=== PATIENT | female | born 1970 | race Two or more races ===

== ENCOUNTER 2017-08-09 14:37 | Emergency (ER) | payer OTHER ==
[~2017-08-09] VITALS: Ht 157.5 cm; Wt 61.2 kg
[~2017-08-09 14:37] MED LIST: IBUPROFEN600 MG ORAL; NKM; NORCO 5-325 TA1 EACH ORAL
--- NOTE | 2017-08-09 15:04 | Emergency Room Report ---
History of Present Illness General Chief Complaint: Pain Source: Patient Present Illness HPI Patient presents emergency department today complaining of right shoulder pain wrist pain and left knee pain. Patient states that she had [place] [employer] yesterday when she slipped on some water. She initially didn't feel so much pain when home. She states the pain became worse today. She's having pain limits her range of motion her right shoulder. She cannot abduct it has been 90. She denies any headache neck pain or chest pain. She complains of some mild lower back discomfort but is able to ambulate without difficulty. Denies any dysuria or frequency. She is able to move her wrist as well as her ankle. And her knee. She denies any snuffbox tenderness. Symptoms are noted to be mild/moderate.No other modifying factors. No other associated signs and symptoms. No other complaints were noted. Allergies: Coded Allergies: No Known Allergies (Verified Allergy, Unknown, 10/15/06) Patient History Past Medical History: none Past Surgical History: none Pertinent Family History: none Social History: Denies: smoking, alcohol use, drug use Last Menstrual Period: 08/02/17 Reviewed Nursing Documentation: PMH: Agreed, PSxH: Agreed Nursing Documentation-PMH Past Medical History: No Stated History Review of Systems All Other Systems: negative except mentioned in HPI Physical Exam Vital Signs Date Time Temp Pulse Resp B/P (MAP) Pulse Ox O2 Delivery O2 Flow Rate FiO2 08/09/17 14:40 98.4 76 18 127/83 98 Room Air Sp02 EP Interpretation: reviewed, normal General Appearance: normal inspection, well appearing, no apparent distress, alert Head: atraumatic Eyes: bilateral eye normal inspection ENT: normal ENT inspection, hearing grossly normal, normal voice Neck: normal inspection, full range of motion, supple, no bony tend Respiratory: normal inspection, lungs clear, normal breath sounds, no respiratory distress, no retraction, no wheezing Cardiovascular #1: regular rate, rhythm, no edema Gastrointestinal: normal inspection, normal bowel sounds, non tender, soft, no guarding, no hernia Genitourinary: no CVA tenderness Musculoskeletal: back normal, other - right shoulder tenderness, pain limits her range of motion Neurologic: normal inspection, alert, responsive, speech normal Psychiatric: normal inspection, judgement/insight normal, mood/affect normal Skin: normal inspection, normal color, no rash Medical Decision Making Diagnostic Impression: Primary Impression: Right shoulder strain Qualified Codes: S46.911A - Strain of unspecified muscle, fascia and tendon at shoulder and upper arm level, right arm, initial encounter ER Course Patient presents emergency department today complaining of right shoulder pain. Patient had a mechanical fall yesterday. Differential considerations include fracture dislocation versus strain. Given patient's presentation of x-rays are indicated. X-rays were negative. Patient was given a sling for comfort. This patient for pain medications. Patient is advised to follow up with primary doctor in 2-3 days and return the emergency room for any worsening symptoms and as needed. Other X-Ray Diagnostic Results Other X-Ray Diagnostic Results : X-Ray ordered: right shoulder x-ray # of Views/Limited Vs Complete: 1 View Indication: Pain EP Interpretation: Yes Interpretation: no dislocation, no soft tissue swelling, no fractures Impression: No acute disease Last Vital Signs Date Time Temp Pulse Resp B/P (MAP) Pulse Ox O2 Delivery O2 Flow Rate FiO2 08/09/17 14:40 98.4 76 18 127/83 98 Room Air Status: improved Disposition: HOME, SELF-CARE Condition: Stable Scripts Hydrocodone Bit/Acetaminophen 5-325* (NORCO 5-325*) 1 Each Tablet 1 TAB ORAL Q6H Y for For Pain, #10 TAB 0 Refills Prov: BAO MALIN M.D. 08/09/17 Ibuprofen* (MOTRIN*) 600 Mg Tablet 600 MG ORAL Q8H Y for For Pain, #30 TAB 0 Refills Prov: BAO MALIN M.D. 08/09/17 BAO MALIN M.D. Aug 09, 2017 15:04
[2017-08-09] MEDS ORDERED: IBUPROFEN600 MG ORAL (15:34)
[2017-08-09] MEDS ORDERED: NORCO 5-325 TA1 EACH ORAL (15:34)
--- NOTE | 2017-08-09 15:39 | Diagnostic Imaging Report ---
Indication: PAIN Technique: 3 views of the left shoulder Comparison: None Findings: No acute fractures or dislocations. Joint spaces are preserved. Impression: Negative This agrees with the preliminary interpretation provided by the emergency room physician
[2017-08-09 15:59] VITALS: BP 105/71
== END 2017-08-09 16:00 | disposition home or self-care (01) ==
LOC: EMR 15:35
DX: S46.911A Strain of unspecified muscle, fascia and tendon at shoulder and upper arm level, right arm, initial encounter (principal); W01.0XXA Fall on same level from slipping, tripping and stumbling without subsequent striking against object, initial encounter; Y93.9 Activity, unspecified; Y92.512 Supermarket, store or market as the place of occurrence of the external cause; Y99.9 Unspecified external cause status; M25.562 Pain in left knee; M25.539 Pain in unspecified wrist; M25.511 Pain in right shoulder
CPT/HCPCS: 99283